=== PATIENT | female | born 1990 | race Caucasian/White ===

== ENCOUNTER 2017-11-09 09:47 | Emergency (ER) | payer OTHER ==
[~2017-11-09] VITALS: Ht 162.6 cm; Wt 89.0 kg
[2017-11-09 09:53] VITALS: BP 150/101; PULSE 91; RESP 16; TEMP 97.6; O2SAT 99
[2017-11-09] MEDS ORDERED: birth control (10:11)
[2017-11-09] MEDS ORDERED: MEDR4PAK PO (10:11)
[2017-11-09] MEDS ORDERED: ZITHTAB PO (10:22)
--- NOTE | 2017-11-09 10:22 | PD ---
HPI Chief Complaint: Cold / Flu Symptoms Time Seen by Provider: 10:16 Travel History International Travel<30 days: No Contact w/Intl Traveler<30days: No Traveled to known affect area: No History of Present Illness HPI This is a 27-year-old female presents here complaining of cough for the last week. Cough is productive for yellow sputum. Patient went to see a doctor and was given a Medrol pack with no help. Patient denies any fever chills at night no night sweats. She denies any chest pain or shortness of breath. PFSH Past Medical History Medical History: Denies Significant Hx Hx Anticoagulant Therapy: No ?: Not Past Surgical History Surgical History: No Previous Surgery Social History Alcohol Use: Yes (rare) Tobacco Use: No Substance Use: No Allergies-Medications (Allergen,Severity, Reaction): Coded Allergies: Penicillins (Verified Allergy, Severe, 11/09/17) Reported Meds & Prescriptions Reported Meds & Active Scripts Active Zithromax Z-Gucci (Azithromycin) 250 Mg Dspk 250 Mg PO DIRECTED 500 MG (2 tabs) day 1, then 1 tab days 2-5. Reported Medrol Dosepak (Methylprednisolone) 4 Mg Dspk 4 Mg PO DIRECTED Per Pharmacist direction [ control] Review of Systems Except as stated in HPI: all other systems reviewed are Neg Physical Exam Narrative GENERAL: Alert and oriented 3 no acute distress. SKIN: Focused skin assessment warm/dry. HEAD: Atraumatic. Normocephalic. EYES: Pupils equal and round. No scleral icterus. No injection or drainage. ENT: No nasal bleeding or discharge. Mucous membranes pink and moist. NECK: Trachea midline. No JVD. CARDIOVASCULAR: Regular rate and rhythm. No murmur appreciated. RESPIRATORY: No accessory muscle use. Clear to auscultation. Breath sounds equal bilaterally. GASTROINTESTINAL: Abdomen soft, non-tender, nondistended. Hepatic and splenic margins not palpable. MUSCULOSKELETAL: No obvious deformities. No clubbing. No cyanosis. No edema. NEUROLOGICAL: Awake and alert. No obvious cranial nerve deficits. Motor grossly within normal limits. Normal speech. PSYCHIATRIC: Appropriate mood and affect; insight and judgment normal. Data Data Last Documented VS Vital Signs Date Time Temp Pulse Resp B/P (MAP) Pulse Ox O2 Delivery O2 Flow Rate FiO2 11/09/17 09:53 97.6 91 16 150/101 (117) 99 Orders Orders Ed Discharge Order (11/09/17 10:23) MDM Medical Decision Making Medical Screen Exam Complete: Yes Emergency Medical Condition: Yes Differential Diagnosis Bronchitis, sinusitis. Narrative Course This is a 27-year-old female presents to the ER complaining of cough productive of yellow sputum. She has mild rhonchi bilaterally no acute distress she is breathing comfortably on room air saturating 100%. Patient is stable to be discharged on a course of antibiotics and she can return to the ER if symptoms change or do not improve. Diagnosis Primary Impression: Bronchitis Scripts Azithromycin (Zithromax Z-Gucci) 250 Mg Dspk 250 MG PO DIRECTED for Infection, #1 DSPK 0 Refills 500 MG (2 tabs) day 1, then 1 tab days 2-5. Prov: Harris Mg MD 11/09/17 Disposition: 01 DISCHARGE HOME Condition: Stable Harris Mg MD Nov 09, 2017 10:22
== END 2017-11-09 10:32 | disposition home or self-care (01) ==
LOC: PHEFT 09:47
DX: J40 Bronchitis, not specified as acute or chronic (principal); Z88.0 Allergy status to penicillin
CPT/HCPCS: 99283